=== PATIENT | male | born 1975 | race Hispanic/Latino ===

== ENCOUNTER 2018-12-17 19:20 | Emergency (ER) | payer SELFPAY ==
[~2018-12-17] VITALS: Ht 182.9 cm; Wt 81.6 kg
--- NOTE | 2018-12-17 19:52 | NUR ---
Verbal order per Dr.T. Schaeffer to change chemistry to a BMP and Liver Panel.
[2018-12-17] MEDS ORDERED: KETOROLAC TROMETHAMINE 30 MG/ML VIAL IV ONE (20:30)
[2018-12-17] MEDS ORDERED: KETOROLAC TROMETHAMINE 30 MG/ML VIAL ONE (20:38)
--- NOTE | 2018-12-17 21:08 | Diagnostic Imaging Report ---
EXAM: CT Abdomen and Pelvis WITHOUT contrast INDICATION: Right flank pain ^[id number] ^[id number] COMPARISON: None. TECHNIQUE: Abdomen and pelvis were scanned utilizing a multidetector helical scanner from the lung base to the pubic symphysis without administration of IV contrast. Absence of intravenous contrast decreases sensitivity for detection of focal lesions and vascular pathology. Coronal and sagittal reformations were obtained. Renal stone protocol was performed. Dose modulation, iterative reconstruction, and/or weight based adjustment of the mA/kV was utilized to reduce the radiation dose to as low as reasonably achievable. IV CONTRAST: None. ORAL CONTRAST: None RADIATION DOSE: Total DLP: 716.04 mGy*cm Estimated effective dose: (DLP x 0.015 x size factor) mSv COMPLICATIONS: None FINDINGS: LINES and TUBES: None. LOWER THORAX: No focal pulmonary opacity. There is calcified granuloma at the left lung base. There are bilateral [place] hernias containing fat. Heart size normal. HEPATOBILIARY: There is no visible wrist the wrist are No focal hepatic lesions. No biliary ductal dilation. GALLBLADDER: No radio-opaque stones or sludge. No wall thickening. SPLEEN: No splenomegaly. PANCREAS: No focal masses or ductal dilatation. ADRENALS: No adrenal nodules KIDNEYS/URETERS: Mild fullness of the right renal collecting system with mild perinephric fat stranding. No cystic or solid mass lesions. There is a 2 mm intrarenal calculus in the central portion of the right collecting system. There is a 4 mm calculus in the distal right ureter approximately 2 cm above the UVJ. No calculi are seen in the left urinary tract. GI TRACT: No abnormal distention, wall thickening, or evidence of bowel obstruction. Appendix is normal. PELVIC ORGANS/BLADDER: Urinary bladder appears unremarkable. The bladder wall is diffusely thickened, likely accentuated by lack of distention. No discrete abnormal mass or fluid collection in the pelvis. LYMPH NODES: No lymphadenopathy. VESSELS: Unenhanced abdominal aorta are unremarkable with no aneurysm. PERITONEUM / RETROPERITONEUM: No pneumoperitoneum or ascites. BONES: No acute or suspicious bony lesions. SOFT TISSUES: Superficial surrounding soft tissue unremarkable. IMPRESSION: 1. There is a 4 mm calculus in the distal right ureter producing mild obstruction with mild fullness the right renal collecting system. 2. Punctate intrarenal calculus in the right collecting system. 3. No other acute abnormality. Staff: [place] Signed by: Dr. Jasen Mayberry M.D. on 12/17/2018 9:04 PM
[2018-12-17 21:44] VITALS: BP 114/75
== END 2018-12-18 02:44 | disposition home or self-care (01) ==
LOC: FSED 19:20
DX: R10.9 Unspecified abdominal pain (principal); N20.1 Calculus of ureter
CPT/HCPCS: 74176; 80053; 81003; 85025; 99283; J1885